=== PATIENT | female | born 1945 | race Caucasian/White ===

== ENCOUNTER 2017-02-11 16:55 | Emergency (ER) | payer MEDICARE ==
[~2017-02-11] VITALS: Ht 167.6 cm; Wt 59.1 kg
[2017-02-11 16:59] VITALS: BP 143/83; PULSE 90; RESP 16; O2SAT 98
--- NOTE | 2017-02-11 19:18 | ED.REPORT ---
HPI-General Illness Date of Service February 11, 2017 ED Provider: Jian Mascorro DO Patient is a 71 year old female with a history of C-Diff and hypothyroidism who presents to the ED complaining of diarrhea onset 2 days ago. She reports that she finished her antibiotics for C-Diff 5 days ago. Nursing Notes Stated Complaint: C-DIF, ENTEROCOLITIS Chief Complaint: Female Abdominal Pain Nursing Notes Reviewed: Yes Allergies: Coded Allergies: No Known Allergies (Unverified , 02/11/17) General Time Seen by MD: 19:12 Chief Complaint Diarrhea Hx Obtained From: Patient Arrived By: Walk-in Sudden in Onset?: Yes Onset Occurred: 2 days ago Context of Onset: Recent antibiotic use Recent Healthcare: No recent hospitalization, Recent doctor visit Similar Sx Previous: Yes Past Medical History Past Medical History C-Diff hypothyroidism Smoking History Unknown if Ever Smoker Ambulatory Status Independent Review of Systems Full Review of Systems Constitutional: Reports: Chills Respiratory: Denies: Non-productive cough, Shortness of breath GI: Reports: Abdominal pain, Diarrhea, Denies: Nausea, Vomiting Complete sys rev & neg: except as marked. Physical Exam Vital Signs Vital Signs Date Time Temp Pulse Resp B/P Pulse Ox O2 Delivery O2 Flow Rate FiO2 02/11/17 20:54 78 15 132/78 98 Room Air 02/11/17 16:59 37.1 90 16 143/83 98 Room Air Initial VS: Reviewed General/Constitutional: Awake, Alert Head / Eyes: Atraumatic, Normocephalic, PERRL, EOMI Respiratory / Chest: Atraumatic, Breath sounds NL, Breath sounds = bilat, No respiratory distress Cardiovascular: Heart rate NL, Regular rhythm, Heart sounds NL Abdomen: Atraumatic, Soft Tenderness/Guarding/Rebound: Positive: Tender RLQ... Upper Extremities Upper Extremity / MS: Atraumatic, Full range of motion Skin: Atraumatic, Color NL, No rash, Warm, Dry Neurologic: Oriented X3, Speech NL, No motor deficits, No sensory deficits Psychiatric: Affect NL, Mood NL Interpretation & Diagnostics Lab Results Interpretation Result Diagram: 02/11/17201102/11/17 2012 Test 02/11/17 20:12 White Blood Count 7.9th/mm3 (3.8-10.1) Red Blood Count 4.56mil/mm3 (3.90-5.20) Hemoglobin 13.7g/dL (12.0-15.6) Hematocrit 40.4% (35.0-46.0) Mean Corpuscular Volume 88.6fL (81-100) Mean Corpuscular Hemoglobin 30.0pg (27.0-35.0) Mean Corpuscular Hemoglobin Concent 33.9% (32.0-37.0) Red Cell Distribution Width 13.2% (12.3-15.4) Platelet Count 272bil/L (150-400) Neutrophils (%) (Auto) 77.7% (40-74) Lymphocytes (%) (Auto) 13.4% (14-46) Monocytes (%) (Auto) 7.4% (4-12) Eosinophils (%) (Auto) 0.9% (0-5) Basophils (%) (Auto) 0.5% (0-3) Sodium Level 130mEq/L (134-144) Potassium Level 4.2mEq/L (3.5-5.2) Chloride Level 96mEq/L (97-108) Carbon Dioxide Level 22mmol/L (18-29) Blood Urea Nitrogen 8mg/dL (8-27) Creatinine 0.62mg/dL (0.57-1.00) Estimat Glomerular Filtration Rate 136mL/min (>59) Glucose Level 105mg/dL (60-99) Calcium Level 9.3mg/dL (8.5-10.1) Hold [place] Top Tube Received (Received) Re-Eval/Medical Decision Time of Eval: 19:50 Re-Evaluation/Progress Note: Discussed plan for treatment and discharge. The patient understands and agrees to the plan for discharge. All questions were addressed. Consultation : Referral / Consult Name: Honorio Olson MD Call Returned at: 19:42 Public Relations Player: Agrees with eval, Agrees with plan Note: Recommends the patient be placed on Vancomycin Counseled Regarding: Diagnosis, Lab results, Need for follow-up, When/why to return to ED Discharge & Departure Primary Impression: C. difficile colitis Disposition: Home Discharge Condition All VS Reviewed: Yes Condition: Stable Patient Instructions: Clostridium Difficile Infection (ED) Additional Instructions: You most likely have C-Diff again. Take the antibiotic, Vancomycin 4x a day for two weeks. Follow up with your primary care physician. Return to the emergency department if you develop any new or worsening symptoms. Referrals: Gray Gregorio MD (PCP) Pamela Attestation Portions of this note were transcribed by Johana Rowland. I, Dr. Mascorro personally performed the history, physical exam and medical decision-making; I reviewed and confirmed the accuracy of the information in the transcribed note. Signed by: Pamela Dean, 02/11/17 and 2009 copies to: Gray Gregorio MD, Todd P DO February 11, 2017 19:18 Katlin Rowland February 11, 2017 19:30
[2017-02-11] MEDS ORDERED: Vancomycin 100 mg/mL Oral Solution PO ONE (19:45)
[2017-02-11] MEDS ORDERED: Vancomycin 250 mg Oral Capsule PO ONE (20:05)
[2017-02-11 20:24] LABS: BASOPHILS % (AUTO) 0.5 % (0-3); EOSINOPHILS % (AUTO) 0.9 % (0-5); MONOCYTES % (AUTO) 7.4 % (4-12); Mean Corpuscular Volume 88.6 fL (81-100); NEUTROPHILS % (AUTO) 77.7 % (40-74); Platelet Count 272 bil/L (150-400)
[2017-02-11 20:54] VITALS: BP 132/78; PULSE 78; RESP 15; O2SAT 98
== END 2017-02-11 20:51 | disposition home or self-care (01) ==
LOC: SED 16:55
DX: A04.7 Enterocolitis due to Clostridium difficile (principal); E03.9 Hypothyroidism, unspecified